=== PATIENT | female | born 1980 | race Caucasian/White ===

== ENCOUNTER 2016-08-08 23:52 | Emergency (ER) | payer MEDICAID, OTHER, SELFPAY ==
[~2016-08-08] VITALS: Ht 152.4 cm; Wt 90.9 kg
[~2016-08-08 23:52] MED LIST: NO MEDS
[2016-08-09 02:15] VITALS: BP 122/78
== END 2016-08-09 02:59 | disposition home or self-care (01) ==
LOC: EMS 23:53
DX: S40.022A Contusion of left upper arm, initial encounter (principal); F17.200 Nicotine dependence, unspecified, uncomplicated; Z88.1 Allergy status to other antibiotic agents; V89.2XXA Person injured in unspecified motor-vehicle accident, traffic, initial encounter; Y93.89 Activity, other specified; Y92.89 Other specified places as the place of occurrence of the external cause; Y99.8 Other external cause status
CPT/HCPCS: 81025; 93971; 99284